=== PATIENT | male | born 1995 | race Hispanic/Latino ===

== ENCOUNTER 2016-06-09 22:46 | Emergency (ER) | payer OTHER ==
[~2016-06-09] VITALS: Ht 172.7 cm; Wt 127.2 kg
[~2016-06-09 22:46] MED LIST: AMLODIPINE5 MG PO; AMOXICILLIN500 MG PO; CIPROFLOXACN500 MG PO; CLONIDINE0.1 MG PO; ENALAPRIL10 MG OR; FISH OIL1000 MG PO; FLEXERIL PO; GLYBURIDE2.5 M1 PO; GLYBURIDE5 M1 PO; HYDROCO/APAP1 TA9 PO; IBUPROFEN600 MG PO; LISINOP/HCTZ1 TA1 PO; LISINOPRIL20 MG PO; LORTAB 5 OR; LORTAB5 OR; LOSARTAN POT25 MG PO; METFORMIN HCL500 M1 PO; METFORMIN500 M1 PO; NO HOME MEDS; PRAVASTATIN SOD20 MG PO; PRAVASTATIN SOD40 MG PO; RELION ULTIMA B1 KIT XX; RELION ULTIMA T1 TES SC; RELION ULTIMA T1 TES XX; ROBITUSSIN AC10 ML PO; ULTRAM50 M1 PO; VALIUM5 MG PO; [UNRECOGNIZED DRUG - SUPPLY] XX
[2016-06-09] MEDS ORDERED: AMLODIPINE5 MG PO (23:00)
[2016-06-09] MEDS ORDERED: INVOKANA100 MG PO (23:01)
[2016-06-10 00:10] LABS: HEMATOCRIT 42.7 % (39.0-50.0); HEMOGLOBIN 14.8 g/dl (14.0-18.0); IMMATURE GRANULOCYTES 0.3 % (0.0-1.0); MEAN CELL VOLUME 80.6 fL CALC (80.0-100.0); MEAN CORPUSCULAR HGB 27.9 pG CALC (26.0-32.0); MEAN CORPUSCULAR HGB CONC 34.7 g/L CALC (32.0-36.0); NEUT# 5.27 thou/uL (1.82-7.42); RED BLOOD COUNT 5.3 mill/uL (4.70-6.10); RED CELL DISTRI WIDTH 11.7 % (11.5-15.5)
[2016-06-10 00:40] LABS: ALBUMIN 4.4 g/dL (3.2-5.0); ALKALINE PHOSPHATASE 83 u/l (38-126); ANION GAP 16 (6-22 (CALC)); BILIRUBIN, TOTAL 0.5 mg/dL (0.0-1.4); BUN 20 mg/dL (9-20); BUN/CREATININE RATIO 24 (12-20 (CALC)); CALCIUM 9.4 mg/dL (8.4-10.2); CARBON DIOXIDE 28 mmol/l (22-30); CHLORIDE 101 mmol/l (95-108); CREATININE 0.8 mg/dL (0.7-1.3); GFR > 60 ML/MIN (>=60 (CALC)); GFR FOR AFR.AMER. > 60 ML/MIN (>=60 (CALC)); GLUCOSE 179 mg/dL (75-110); POTASSIUM 3.7 mmol/l (3.5-5.1); SGOT/AST 27 u/l (17-59); SGPT/ALT 53 u/l (21-72); SODIUM 141 mmol/l (137-146); TOTAL PROTEIN 7.3 g/dL (6.3-8.2)
[2016-06-10] MEDS ORDERED: AUGMENTIN875TAB PO (01:06)
[2016-06-10] MEDS ORDERED: ANTIVERT PO (01:06)
[2016-06-10 01:18] VITALS: BP 131/74
== END 2016-06-10 01:20 | disposition home or self-care (01) | DRG 149 ==
LOC: ED 22:46
PROVIDERS: Emergency Medicine
DX: R42 Dizziness and giddiness (principal); I10 Essential (primary) hypertension; R51 Headache; E11.9 Type 2 diabetes mellitus without complications; E78.5 Hyperlipidemia, unspecified; Z87.442 Personal history of urinary calculi

== ENCOUNTER 2020-11-20 21:28 | Emergency (ER) | payer SELFPAY ==
[~2020-11-20 21:28] MED LIST changes: +ANTIVERT PO; +AUGMENTIN875TAB PO; +INVOKANA100 MG PO
== END 2020-11-20 22:53 | disposition left against medical advice (07) | DRG 951 ==
LOC: ED 21:28 → LWOBS 22:53
DX: Z53.21 Procedure and treatment not carried out due to patient leaving prior to being seen by health care provider (principal)

== ENCOUNTER 2020-11-24 11:30 | Inpatient (IN) | payer OTHER ==
[~2020-11-24] VITALS: Ht 172.7 cm; Wt 89.0 kg
[2020-11-24 12:35] LABS: HEMATOCRIT 45.1 % (39.0-50.0); HEMOGLOBIN 15.5 g/dl (14.0-18.0); IMMATURE GRANULOCYTES 0.4 % (0.0-5.0); MEAN CORPUSCULAR HGB 28.2 pG CALC (26.0-32.0); MEAN CORPUSCULAR HGB CONC 34.4 g/dL CAL (32.0-36.0); NEUT# 5.56 thou/uL (1.82-7.42); RED BLOOD COUNT 5.5 mill/uL (4.70-6.10); RED CELL DISTRI WIDTH 11.2 % (11.5-15.5)
[2020-11-24 13:00] LABS: GFR > 60 ML/MIN (>=60 (CALC)); GFR FOR AFR.AMER. > 60 ML/MIN (>=60 (CALC))
[2020-11-24 13:44] LABS: ALKALINE PHOSPHATASE 95 u/l (38-126); ANION GAP 19 (6-22 (CALC)); BUN 18 mg/dL (9-20); BUN/CREATININE RATIO 22 (12-20 (CALC)); CARBON DIOXIDE 23 mmol/l (22-30); CHLORIDE 95 mmol/l (95-108); CREATININE 0.8 mg/dL (0.7-1.3); GFR > 60 ML/MIN (>=60 (CALC)); GFR FOR AFR.AMER. > 60 ML/MIN (>=60 (CALC)); POTASSIUM 3.5 mmol/l (3.5-5.1); SGOT/AST 41 u/l (17-59); SODIUM 134 mmol/l (137-146); TOTAL PROTEIN 7.9 g/dL (6.3-8.2)
[2020-11-24 13:46] LABS: BILIRUBIN, TOTAL 1.1 mg/dL (0.0-1.4)
[2020-11-24 13:56] LABS: MYOGLOBIN 33 ng/mL (0 - 121)
[2020-11-24 22:11] VITALS: BP 138/75
== END 2020-11-24 21:37 | disposition short-term general hospital (02) | DRG 64 ==
LOC: ED 11:30 → ED-I 13:25 → ED 13:34 → ED-I 13:35 → ICU 14:25 → ED-I 17:40
PROVIDERS: Emergency Medicine; ADMIT Hospitalist; ATTEND Hospitalist
DX: I63.81 Other cerebral infarction due to occlusion or stenosis of small artery (principal); U07.1 COVID-19; G81.94 Hemiplegia, unspecified affecting left nondominant side; I63.541 Cerebral infarction due to unspecified occlusion or stenosis of right cerebellar artery; R47.81 Slurred speech; R29.810 Facial weakness; R29.703 NIHSS score 3; I10 Essential (primary) hypertension; E11.9 Type 2 diabetes mellitus without complications; E78.5 Hyperlipidemia, unspecified; Z86.73 Personal history of transient ischemic attack (TIA), and cerebral infarction without residual deficits; Z79.84 Long term (current) use of oral hypoglycemic drugs
CPT/HCPCS: J1650; Q9967

== ENCOUNTER 2022-01-02 01:02 | Emergency (ER) | payer MEDICAID ==
[2022-01-02] VITALS (12 sets, daily range): BP systolic 149–205; BP diastolic 86–126
[~2022-01-02] VITALS: Ht 172.7 cm; Wt 122.0 kg
[2022-01-02] MEDS ORDERED: CYCLOBENZAPRINE10 MG PO (03:31)
[2022-01-02] MEDS ORDERED: ULTRAM50 M1 PO (03:31)
== END 2022-01-02 03:50 | disposition home or self-care (01) ==
LOC: ED 01:02
DX: M47.816 Spondylosis without myelopathy or radiculopathy, lumbar region (principal); I10 Essential (primary) hypertension; E11.9 Type 2 diabetes mellitus without complications; Z86.73 Personal history of transient ischemic attack (TIA), and cerebral infarction without residual deficits; Z79.84 Long term (current) use of oral hypoglycemic drugs